=== PATIENT | female | born 1985 | race Caucasian/White ===

== ENCOUNTER 2023-03-19 03:54 | Emergency (ER) | payer MEDICAID ==
[~2023-03-19] VITALS: Ht 162.6 cm; Wt 61.2 kg
[2023-03-19 03:57] VITALS: BP 134/76; PULSE 87; RESP 20; TEMP 97; O2SAT 96
[2023-03-19] MEDS ORDERED: ONDANSETRON 4 MG/2 ML VIAL IVP ONE (04:00)
[2023-03-19] MEDS ORDERED: MORPHINE SULFATE 4 MG/ML SYR IVP ONE (04:00)
[2023-03-19] MEDS ORDERED: NACL 0.9% 1,000 ML IV ONE (04:00)
[2023-03-19] MEDS ORDERED: diphenhydrAMINE 50 MG/ML VIAL IVP ONE (04:00)
[2023-03-19 04:15] LABS: BASOPHILS % (AUTO) 0.3 % (0.0-2.0); EOSINOPHILS # (AUTO) 0.1 K/uL (0-0.4); EOSINOPHILS % (AUTO) 0.9 % (0.0-4.0); HEMATOCRIT 42.1 % (36-48); HEMOGLOBIN 13.8 g/dL (12.0-16.0); LYMPHOCYTES # (AUTO) 1.6 K/uL (2.5-16.5); LYMPHOCYTES % (AUTO) 14.4 % (20.5-51.1); MEAN CORPUSCULAR HEMOGLOBIN 30 pg (27-31); MEAN CORPUSCULAR HGB CONC 33 g/dL (33-37); MEAN CORPUSCULAR VOLUME 91.5 fL (80-94); MONOCYTES # (AUTO) 0.3 K/uL (0.8-1.0); MONOCYTES % (AUTO) 2.8 % (1.7-9.3); NEUTROPHILS # (AUTO) 9.2 K/uL (1.8-7.7); NEUTROPHILS % (AUTO) 81.6 % (42.2-75.2); PLATELET COUNT (AUTO) 361 K/uL (140-450); RED BLOOD CELL COUNT(AUTO) 4.61 MIL/uL (4.20-5.40); RED CELL DISTRIBUTION WIDTH 14.5 % (11.6-13.7); WHITE BLOOD COUNT (AUTO) 11.3 K/uL (4.8-10.8)
[2023-03-19] MEDS ORDERED: KETOROLAC 30 MG/ML VIAL IVP ONE (04:15)
[2023-03-19] MEDS ORDERED: HALOPERIDOL IM 5 MG/ML VIAL IM ONE (04:15)
[2023-03-19 04:34] LABS: ALBUMIN 4.4 g/dL (3.4-5.0); ANION GAP 17.8 (8-16); CALCIUM 9.1 mg/dL (8.5-10.1); CREATININE 0.8 mg/dL (0.6-1.3); POTASSIUM 3.8 mmol/L (3.5-5.1); TOTAL BILIRUBIN 0.3 mg/dL (0.0-1.0); TOTAL PROTEIN, SERUM 8.4 g/dL (6.4-8.2)
[2023-03-19 06:25] VITALS: BP 92/52; PULSE 73; RESP 14; O2SAT 95
== END 2023-03-19 07:36 | disposition home or self-care (01) ==
LOC: MED 03:54
DX: F10.129 Alcohol abuse with intoxication, unspecified (principal); R10.84 Generalized abdominal pain; F12.90 Cannabis use, unspecified, uncomplicated; Z98.890 Other specified postprocedural states; Z88.0 Allergy status to penicillin; Y90.6 Blood alcohol level of 120-199 mg/100 ml
CPT/HCPCS: 36415; 80053; 83690; 84703; 85025; 96361; 96372; 96374; 96375; 99284; G0482; J1200; J1630; J1885; J2270; J2405; J7030